=== PATIENT | male | born 1980 | race Caucasian/White ===

== ENCOUNTER 2019-11-20 08:37 | Outpatient (CLI) | payer BC, SELFPAY ==
[2019-11-21 17:06] LABS: COVID-19 RT-PCR Result NEGATIVE (Negative)
== END 2019-11-20 08:57 ==
PROVIDERS: PCP Internal Medicine; Visit Provider Nurse Practitioner Family
DX: Z11.59 Encounter for screening for other viral diseases (principal)
CPT/HCPCS: U0003